=== PATIENT | female | born 1940 | race Caucasian/White ===

== ENCOUNTER 2024-11-09 00:13 | Emergency (ER) | payer MEDICARE, MEDICAID ==
[~2024-11-09] VITALS: Ht 152.4 cm; Wt 76.4 kg
[~2024-11-09 00:13] MED LIST: CALC500T62 PO
[2024-11-09 00:16] VITALS: BP 132/47; PULSE 68; RESP 15; TEMP 97.9; O2SAT 97
[2024-11-09] MEDS ORDERED: FERR325T27 PO (18:41)
[2024-11-09] MEDS ORDERED: ATOR40TA28 PO (18:41)
[2024-11-09] MEDS ORDERED: DRON400T6 PO (18:41)
[2024-11-09] MEDS ORDERED: LISI-894 PO (18:41)
[2024-11-11] MEDS ORDERED: LOSA-382 PO (09:57)
[2024-11-11] MEDS ORDERED: AMLO-257 PO (09:57)
[2024-11-11] MEDS ORDERED: HYDR25TA2 PO (10:02)
== END 2024-11-09 04:30 | disposition left against medical advice (07) ==
LOC: EMS 00:13
DX: R51.9 Headache, unspecified (principal); Z53.21 Procedure and treatment not carried out due to patient leaving prior to being seen by health care provider